=== PATIENT | female | born 1990 | race Caucasian/White ===

== ENCOUNTER 2020-10-07 19:52 | Emergency (ER) | payer MEDICAID ==
[~2020-10-07] VITALS: Ht 149.9 cm; Wt 118.3 kg
[2020-10-07] MEDS ORDERED: DOXE100C PO (20:22)
[2020-10-07] MEDS ORDERED: LEVE750T37 PO (20:22)
[2020-10-07] MEDS ORDERED: AMPH20CA7 PO (20:22)
[2020-10-07] MEDS ORDERED: METF500T17 PO (20:22)
--- NOTE | 2020-10-07 20:22 | NUR ---
PT CAME INTO ED TONIGHT D/T LOWER RIGHT SIDED ABDOMINAL PAIN THAT HAS BEEN PRESENT FOR A FEW DAYS, RECENTLY SEEN AND INFORMED SHE HAD AN ELEVATED WHITE COUNT AND THAT SHE MAY NEED TO FOLLOW UP ON HER APPENDIX. PT REPORTS PAIN INCREASING AND IS NOT INTOLERABLE, COMING IN WAVES. REPORTS NAUSEA AND ONE EMESIS EPISODE TODAY. PT CHANGED INTO GOWN, COMFORTABLE ON GURNEY, PROVIDED WARM BLANKETS, CALL LIGHT ON LAP, NAD. PLACED ON SPO2/BP/ECG MONITORING AT THIS TIME. WCABDELRAHMAN. CLARI NAVAS AT FOR EVAL AND POC.
[2020-10-07] MEDS ORDERED: SODIUM CHLORIDE FLUSH 10ML SYR IVF ONE (20:30)
[2020-10-07] MEDS ORDERED: ONDANSETRON 2MG/ML, 2ML IVPush ONE (20:30)
[2020-10-07] MEDS ORDERED: SODIUM CHLORIDE 0.9% 1,000ML IVBOLUS ONE (20:30)
[2020-10-07] MEDS ORDERED: ONDANSETRON 2MG/ML, 2ML ONE (20:39)
[2020-10-07] MEDS ORDERED: MORPHINE SULFATE 4 MG/ML, 1ML ONE ×2 (20:39→21:29)
[2020-10-07] MEDS: MORPHINE SULFATE 4 MG/ML, 1ML IVPush PRN ×2 (20:42→21:35)
--- NOTE | 2020-10-07 20:53 | NUR ---
PT RESTING ON GURNEY, MEDICATED PER NOV, NAD, NO CHANGES IN CONDITION AT THIS TIME. WAITING FOR LABS AND CT. WCTM.
--- NOTE | 2020-10-07 20:57 | NUR ---
CT PENDING HCG RESULT.
[2020-10-07 21:00] LABS: BASOPHILS % (AUTO) 1 % (0-1); EOSINOPHILS % (AUTO) 3 % (1-7); LYMPHOCYTES % (AUTO) 34 % (22-44); MEAN CORPUSCULAR HEMOGLOBIN 28.7 pg (27.0-34.8); MEAN CORPUSCULAR HGB CONC 33.9 g/dL (32.4-35.8); MEAN PLATELET VOLUME 7.6 fL (7.4-10.4); MONOCYTES % (AUTO) 4 % (2-9); NEUTROPHILS % (AUTO) 58 % (42-75); PLATELET COUNT 416 x10^3/uL (130-400); RED BLOOD COUNT 4.83 x10^6/uL (3.82-5.3); RED CELL DISTRIBUTION WIDTH 13.1 % (9.6-15.2)
[2020-10-07 21:01] LABS: ALBUMIN 3.5 g/dL (3.4-5.0); ANION GAP 5 mmol/L (5-15); CALCIUM 8.7 mg/dL (8.5-10.1); CHLORIDE 106 mmol/L (98-107)
[2020-10-07 21:03] LABS: MD NO
[2020-10-07 21:50] LABS: HCG UR SG 1.021 (1.003-1.030)
[2020-10-07 21:53] LABS: MICROSCOPIC INDICATED
--- NOTE | 2020-10-07 21:58 | NUR ---
PT NAD, RESTING ON GURNEY, WATCHING TV, APPEARS SLIGHTLY MORE COMFORTABLE, EVEN AND UNLABORED RESPIRATIONS, UA SENT TO LAB. WCTM.
--- NOTE | 2020-10-07 22:37 | NUR ---
PT RESTING ON STOMACH ON GURNEY, WATCHING TV, EVEN AND UNLABORED RESPIRATIONS NOTED, PT REPORTS DISCOMFORT STILL PRESENT IN ABDOMEN AT THIS TIME. BED IN LOWEST, RAILS UP, CALL LIGHT ON LAP, WCTM. WAITING FOR CT READ
--- NOTE | 2020-10-07 22:57 | NUR ---
PT REQ MORE PAIN AND NAUSEA MEDS ERP AWARE NO NEW ORDERS AT THIS TIME AWAITING DISPO
[2020-10-07 23:45] VITALS: BP 99/58
--- NOTE | 2020-10-07 23:45 | NUR ---
Patient given discharge instructions and they have confirmed that they understand the instructions. Patient ambulatory with steady gait. NAD, DENIES ADDITIONAL NEEDS, ALL QUESTIONS ANSWERED APPROPRIATELY, PROVIDED WORK NOTE AND STATES SHE HAS A FRIEND PICKING HER UP. NO PERSONAL BELONGINGS LEFT IN ROOM AFTER DC.
== END 2020-10-07 23:47 | disposition home or self-care (01) ==
LOC: ED 21:10
DX: R10.31 Right lower quadrant pain (principal); R11.2 Nausea with vomiting, unspecified; R50.9 Fever, unspecified; E11.9 Type 2 diabetes mellitus without complications
CPT/HCPCS: 36415; 74176; 80048; 81001; 81025; 82040; 83605; 85025; 87040; 87086; 96361; 96374; 96375; 96376; 99285; J2270; J2405; J7030

== ENCOUNTER 2020-10-08 23:26 | Emergency (ER) | payer MEDICAID ==
[~2020-10-08] VITALS: Ht 149.9 cm; Wt 119.0 kg
[~2020-10-08 23:26] MED LIST: AMPH20CA7 PO; DOXE100C PO; LEVE750T37 PO; METF500T17 PO
[2020-10-09] MEDS ORDERED: SODIUM CHLORIDE FLUSH 10ML SYR IVF ONE
[2020-10-09] MEDS ORDERED: ONDANSETRON 2MG/ML, 2ML ONE ×2 (00:05→01:39)
[2020-10-09] MEDS ORDERED: MORPHINE SULFATE 4 MG/ML, 1ML ONE ×2 (00:05→01:39)
[2020-10-09] MEDS: MORPHINE SULFATE 4 MG/ML, 1ML IVPush PRN ×2 (00:11→01:45)
--- NOTE | 2020-10-09 00:12 | NUR ---
Pt comes in with RLQ pain that goes up to the RUQ pain. Patient was seen here yesterday for the same thing, states that the pain is worse and now have a fever. Patient complaints of nausea/vomiting as well. Patient medicated per NOV. IV placed and labs obtained. Call light within reach
[2020-10-09 00:25] LABS: BASOPHILS % (AUTO) 1 % (0-1); EOSINOPHILS % (AUTO) 4 % (1-7); LYMPHOCYTES % (AUTO) 46 % (22-44); MEAN CORPUSCULAR HEMOGLOBIN 28.8 pg (27.0-34.8); MEAN CORPUSCULAR HGB CONC 33.8 g/dL (32.4-35.8); MEAN PLATELET VOLUME 7.4 fL (7.4-10.4); MONOCYTES % (AUTO) 5 % (2-9); NEUTROPHILS % (AUTO) 43 % (42-75); PLATELET COUNT 361 x10^3/uL (130-400); RED BLOOD COUNT 4.61 x10^6/uL (3.82-5.3); RED CELL DISTRIBUTION WIDTH 12.8 % (9.6-15.2)
[2020-10-09 00:26] LABS: MD NO
[2020-10-09 00:33] LABS: ALANINE AMINOTRANSFERASE 167 U/L (12-78); ALBUMIN 3.2 g/dL (3.4-5.0); ANION GAP 4 mmol/L (5-15); CALCIUM 8.5 mg/dL (8.5-10.1); CHLORIDE 109 mmol/L (98-107); CREATININE 0.68 mg/dL (0.55-1.02)
[2020-10-09 00:38] LABS: ALKALINE PHOSPHATASE 78 U/L (45-117); BILIRUBIN,TOTAL 0.3 mg/dL (0.2-1.0); TOTAL PROTEIN 7.4 g/dL (6.4-8.2)
[2020-10-09] MEDS ORDERED: ONDANSETRON 2MG/ML, 2ML IVPush ONE ×2 (02:00)
[2020-10-09 02:04] VITALS: BP 106/66
== END 2020-10-09 02:13 | disposition home or self-care (01) ==
LOC: ED 10-09 00:01
DX: R10.31 Right lower quadrant pain (principal); R10.11 Right upper quadrant pain; R11.0 Nausea; R11.2 Nausea with vomiting, unspecified; R19.7 Diarrhea, unspecified; R50.9 Fever, unspecified; E11.9 Type 2 diabetes mellitus without complications; J45.909 Unspecified asthma, uncomplicated; G40.909 Epilepsy, unspecified, not intractable, without status epilepticus
CPT/HCPCS: 36415; 80053; 83690; 84703; 85025; 96374; 96375; 96376; 99284; J2270; J2405

== ENCOUNTER 2020-10-13 04:32 | Emergency (ER) | payer MEDICAID ==
[~2020-10-13] VITALS: Ht 149.9 cm; Wt 119.0 kg
[2020-10-13] MEDS ORDERED: ONDANSETRON 2MG/ML, 2ML ONE (05:16)
[2020-10-13] MEDS ORDERED: MORPHINE SULFATE 4 MG/ML, 1ML ONE ×2 (05:16→06:12)
[2020-10-13] MEDS ORDERED: ONDANSETRON 2MG/ML, 2ML IVPush ONE (05:30)
[2020-10-13] MEDS ORDERED: SODIUM CHLORIDE FLUSH 10ML SYR IVF ONE (05:30)
[2020-10-13] MEDS: MORPHINE SULFATE 4 MG/ML, 1ML IVPush PRN ×2 (05:36→06:15)
[2020-10-13 05:43] LABS: BASOPHILS % (AUTO) 1 % (0-1); EOSINOPHILS % (AUTO) 2 % (1-7); LYMPHOCYTES % (AUTO) 35 % (22-44); MEAN CORPUSCULAR HEMOGLOBIN 28.5 pg (27.0-34.8); MEAN CORPUSCULAR HGB CONC 33.9 g/dL (32.4-35.8); MEAN PLATELET VOLUME 7.3 fL (7.4-10.4); MONOCYTES % (AUTO) 6 % (2-9); NEUTROPHILS % (AUTO) 56 % (42-75); PLATELET COUNT 363 x10^3/uL (130-400); RED CELL DISTRIBUTION WIDTH 13.2 % (9.6-15.2)
[2020-10-13 05:45] LABS: MD NO
--- NOTE | 2020-10-13 05:47 | NUR ---
PT HAVING RT LOWER ABDOMINAL PAIN FOR WEEKS, PT STATES SHE IS ESTABLISHED WITH PRIMARY BUT THE PAIN WAS TOO MUCH AND HAD TO COME IN. PIV STARTED, LABS DRAWN, URINE COLLECTED, AND PT MEDICATED PER EMAR
[2020-10-13 05:50] LABS: ALANINE AMINOTRANSFERASE 117 U/L (12-78); ALBUMIN 3.4 g/dL (3.4-5.0); ANION GAP 7 mmol/L (5-15); CALCIUM 9.1 mg/dL (8.5-10.1); CHLORIDE 108 mmol/L (98-107)
[2020-10-13 05:53] LABS: ALKALINE PHOSPHATASE 82 U/L (45-117); BILIRUBIN,TOTAL 0.4 mg/dL (0.2-1.0); TOTAL PROTEIN 7.5 g/dL (6.4-8.2)
[2020-10-13 06:12] LABS: MICROSCOPIC NOT IND
--- NOTE | 2020-10-13 06:15 | NUR ---
PT STATES STILL HAVING 9/10 PAIN. MEDICATED PER EMAR
--- NOTE | 2020-10-13 06:54 | NUR ---
REPORT GIVEN TO MARNIE ENRIQUEZ
[2020-10-13] MEDS ORDERED: KETOROLAC 30 MG/1 ML IVPush ONE (07:30)
[2020-10-13] MEDS ORDERED: KETOROLAC 30 MG/1 ML ONE (07:52)
[2020-10-13 07:56] VITALS: BP 107/67
--- NOTE | 2020-10-13 07:56 | NUR ---
PT REQUESTING ADDITIONAL PAIN MEDICATIONS, PT MEDICATED PER ERP ORDER/MAR. US COMPLETED, VSS, NAD NOTED
== END 2020-10-13 09:25 | disposition home or self-care (01) ==
LOC: ED 05:49
DX: R10.31 Right lower quadrant pain (principal); R10.32 Left lower quadrant pain; R11.2 Nausea with vomiting, unspecified; Z88.0 Allergy status to penicillin; Z90.89 Acquired absence of other organs
CPT/HCPCS: 36415; 76700; 80053; 81003; 81025; 83690; 85025; 96374; 96375; 96376; 99284; J1885; J2270; J2405; 96361

== ENCOUNTER 2020-10-27 19:45 | Emergency (ER) | payer MEDICAID ==
[~2020-10-27] VITALS: Ht 149.9 cm; Wt 121.0 kg
[2020-10-27] MEDS ORDERED: MORPHINE SULFATE 4 MG/ML, 1ML IVPush ONE (20:30)
[2020-10-27] MEDS ORDERED: ONDANSETRON 2MG/ML, 2ML IVPush ONE (20:30)
[2020-10-27] MEDS ORDERED: SODIUM CHLORIDE FLUSH 10ML SYR IVF ONE (20:30)
[2020-10-27] MEDS ORDERED: SODIUM CHLORIDE 0.9% 1,000ML IVBOLUS ONE (20:30)
[2020-10-27] MEDS ORDERED: ONDANSETRON 2MG/ML, 2ML ONE (20:44)
[2020-10-27] MEDS ORDERED: MORPHINE SULFATE 4 MG/ML, 1ML ONE (20:45)
[2020-10-27 21:13] LABS: BASOPHILS % (AUTO) 1 % (0-1); EOSINOPHILS % (AUTO) 2 % (1-7); LYMPHOCYTES % (AUTO) 31 % (22-44); MD NO; MEAN CORPUSCULAR HEMOGLOBIN 28.6 pg (27.0-34.8); MEAN CORPUSCULAR HGB CONC 34.2 g/dL (32.4-35.8); MEAN PLATELET VOLUME 7.5 fL (7.4-10.4); MONOCYTES % (AUTO) 5 % (2-9); NEUTROPHILS % (AUTO) 61 % (42-75); PLATELET COUNT 342 x10^3/uL (130-400); RED BLOOD COUNT 4.53 x10^6/uL (3.82-5.3); RED CELL DISTRIBUTION WIDTH 13.3 % (9.6-15.2)
[2020-10-27 21:26] LABS: ALANINE AMINOTRANSFERASE 166 U/L (12-78); ALBUMIN 3.3 g/dL (3.4-5.0); ANION GAP 6 mmol/L (5-15); CALCIUM 8.9 mg/dL (8.5-10.1); CHLORIDE 105 mmol/L (98-107); CREATININE 0.74 mg/dL (0.55-1.02)
[2020-10-27 21:31] LABS: ALKALINE PHOSPHATASE 86 U/L (45-117); BILIRUBIN,TOTAL 0.2 mg/dL (0.2-1.0); TOTAL PROTEIN 7.8 g/dL (6.4-8.2)
--- NOTE | 2020-10-27 22:00 | NUR ---
PT RESTING IN BED. PT AWARE UA IS NEEDED. PT ON MONITOR WITH VSS. PT HAS NO CURRENT WANTS OR NEEDS
--- NOTE | 2020-10-27 23:00 | NUR ---
PT AMBULATED TO BATHROOM WITHOUT DIFFICULTY. UA SENT TO LAB
[2020-10-27 23:09] VITALS: BP 106/64
--- NOTE | 2020-10-27 23:10 | NUR ---
PT REQUESTED MORE PAIN MEDS, PROVIDER NOTIFIED. VSS
[2020-10-27 23:28] LABS: MICROSCOPIC INDICATED
== END 2020-10-28 00:17 | disposition home or self-care (01) ==
LOC: ED 20:39
DX: R10.11 Right upper quadrant pain (principal); R11.2 Nausea with vomiting, unspecified; R19.7 Diarrhea, unspecified; Z72.9 Problem related to lifestyle, unspecified; R00.0 Tachycardia, unspecified; J45.909 Unspecified asthma, uncomplicated; E11.9 Type 2 diabetes mellitus without complications; G40.909 Epilepsy, unspecified, not intractable, without status epilepticus; Z90.89 Acquired absence of other organs
CPT/HCPCS: 36415; 76700; 80053; 81001; 83690; 84703; 85025; 87086; 96361; 96374; 96375; 99284; J2270; J2405; J7030; 87077

== ENCOUNTER 2020-11-06 07:16 | Emergency (ER) | payer MEDICAID ==
[~2020-11-06] VITALS: Ht 157.5 cm; Wt 121.9 kg
[2020-11-06 07:19] VITALS: BP 136/62
--- NOTE | 2020-11-06 07:27 | NUR ---
PT AMBULATED TO THE ROOM W/ A STEADY GAIT.
--- NOTE | 2020-11-06 07:32 | NUR ---
NEGRO NAVAS AT BEDSIDE FOR ED EVAL.
--- NOTE | 2020-11-06 07:57 | NUR ---
Patient given discharge instructions w/ prescription and they have confirmed that they understand the instructions. Patient ambulatory with steady gait.
== END 2020-11-06 08:12 | disposition home or self-care (01) ==
LOC: ED 07:59
DX: K08.89 Other specified disorders of teeth and supporting structures (principal); E11.9 Type 2 diabetes mellitus without complications; J45.909 Unspecified asthma, uncomplicated
CPT/HCPCS: 99283; 99285

== ENCOUNTER 2021-01-08 22:18 | Emergency (ER) | payer MEDICAID ==
[~2021-01-08] VITALS: Ht 149.9 cm; Wt 121.2 kg
[2021-01-08 22:22] VITALS: BP 129/71
[2021-01-08] MEDS ORDERED: FLUORESCEIN OPHTHALMIC 1 MG STRIP ONE (22:28)
[2021-01-08] MEDS ORDERED: PROPARACAINE OPHTH 0.5%, 15ML ONE (22:29)
== END 2021-01-08 23:10 | disposition home or self-care (01) ==
LOC: ED 22:46
DX: H10.023 Other mucopurulent conjunctivitis, bilateral (principal); E11.9 Type 2 diabetes mellitus without complications
CPT/HCPCS: 99283

== ENCOUNTER 2021-02-21 20:20 | Emergency (ER) | payer MEDICAID ==
[~2021-02-21] VITALS: Ht 124.5 cm; Wt 150.0 kg
[2021-02-21 21:00] LABS: BASOPHILS % (AUTO) 1 % (0-1); EOSINOPHILS % (AUTO) 3 % (1-7); LYMPHOCYTES % (AUTO) 27 % (22-44); MEAN CORPUSCULAR HEMOGLOBIN 29.5 pg (27.0-34.8); MEAN CORPUSCULAR HGB CONC 35.2 g/dL (32.4-35.8); MEAN PLATELET VOLUME 7.8 fL (7.4-10.4); MONOCYTES % (AUTO) 5 % (2-9); NEUTROPHILS % (AUTO) 64 % (42-75); PLATELET COUNT 311 x10^3/uL (130-400); RED BLOOD COUNT 4.75 x10^6/uL (3.82-5.3); RED CELL DISTRIBUTION WIDTH 13.1 % (9.6-15.2)
[2021-02-21 21:05] LABS: MD NO
[2021-02-21 21:07] LABS: ALBUMIN 3.4 g/dL (3.4-5.0); ANION GAP 7 mmol/L (5-15); CALCIUM 8.9 mg/dL (8.5-10.1); CHLORIDE 105 mmol/L (98-107); CREATININE 0.73 mg/dL (0.55-1.02)
[2021-02-21 21:10] LABS: TROPONIN I < 0.015 ng/mL (0.000-0.045)
--- NOTE | 2021-02-21 22:25 | NUR ---
SALES ACCOUNT COORDINATOR: PT. TO ROOM FROM LOBBY AT THIS TIME.
--- NOTE | 2021-02-21 22:51 | NUR ---
ASSUMED CARE OF PATIENT. PT REPORTS SHE HAD A COVID SHOT YESTERDAY AND HAS BEEN HAVING BILATERAL ARM PAIN AND CENTER CHEST PAIN 7. PT ALSO REPORTS REDNESS/SWELLING AT INJECTION SITE. VS STABLE. CALL LIGHT IN PLACE. GAMING CAGE WORKER. NSR NOTED. WILL CONTINUE TO MONITOR.
--- NOTE | 2021-02-21 23:34 | NUR ---
DR HERNANDEZ IN ROOM UPDATING PATIENT
--- NOTE | 2021-02-22 00:09 | NUR ---
PT AMBULATED TO BATHROOM. VS STABLE. NO ACUTE DISTRSS NOTED. WILL CONTINUE TO MONITOR.
--- NOTE | 2021-02-22 00:31 | NUR ---
US IN ROOM
--- NOTE | 2021-02-22 01:10 | NUR ---
PT GIVEN ICE CHIPS OKAYED BY DR CELAYA
[2021-02-22 01:57] VITALS: BP 125/56
== END 2021-02-22 02:04 | disposition home or self-care (01) ==
LOC: ED 21:42
DX: R07.89 Other chest pain (principal); M25.511 Pain in right shoulder; R10.11 Right upper quadrant pain; E11.9 Type 2 diabetes mellitus without complications; G40.909 Epilepsy, unspecified, not intractable, without status epilepticus
CPT/HCPCS: 36415; 71046; 80048; 82040; 84484; 85025; 85379; 93005; 93970; 99285